=== PATIENT | female | born 1995 | race Caucasian/White ===

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

== ENCOUNTER 2017-04-21 17:03 | Emergency (ER) | END 2017-04-21 18:20 | disposition left against medical advice (07) | LOC: UCEAST 17:03 | DX: L98.9 Disorder of the skin and subcutaneous tissue, unspecified (principal); Z53.21 Procedure and treatment not carried out due to patient leaving prior to being seen by health care provider ==

== ENCOUNTER 2017-04-21 18:26 | Emergency (ER) | payer SELFPAY ==
[2017-04-21 18:51] VITALS: BP 116/47
--- NOTE | 2017-04-21 19:18 | UC ---
Skin Complaint HPI - HPI Summary HPI Summary: 22 y/o female presents to the urgent care c/o of rash around her medial thighs and suprapubic area since last Thursday. She states rash started in the medial thighs first and then spread at the suprapubic area and in her back and now one discrete papule in the LF cheek. It is painful and itchess. some of them as oozing pus. 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 She recently started taking Celexa for Depression about 2 weeks ago. Pt denies fever, SOB, HX of STDs, sick contacts, Chest pain, N/V/D, vaginal discharge. LMP: 04/02/2017 - History of Current Complaint Chief Complaint: UCSkin Time Seen by Provider: 04/21/17 18:53 Stated Complaint: SKIN COMPLAINT Hx Obtained From: Patient Hx Last Menstrual Period: 04/02/17 ?: No Onset/Duration: Sudden Onset, Lasting Days, Still Present Skin Exposure Onset/Duration: Days Ago Timing: Constant Onset Severity: Mild Current Severity: Moderate Pain Intensity: 3 Pain Scale Used: 0-10 Numeric Location: Discrete - in the medial thights, suprapubic area, one in the left cheek and in the back Aggravating: Wet Conditions, Humidity, Touch Alleviating: OTC Meds - triple antibiotic Associated Signs & Symptoms: Positive: Tenderness. Negative: Nausea, Vomiting, Fever - Allergy/Home Medications Allergies/Adverse Reactions: Allergies Allergy/AdvReac Type Severity Reaction Status Date / Time milk and dairy products Allergy Congestion Uncoded 04/21/17 18:51 trees nuts Allergy Swelling Uncoded 04/21/17 18:51 Of Face,Lips,& Throat Home Medications: Home Medications Citalopram TAB* [Celexa TAB*] 20 mg PO DAILY 04/21/17 [History Confirmed ] Review of Systems Skin: Rash - in the medial thights and suprapubic area Eyes: Negative ENT: Negative Respiratory: Negative Cardiovascular: Negative Gastrointestinal: Negative Genitourinary: Negative Motor: Negative Neurovascular: Negative Musculoskeletal: Negative Neurological: Negative Psychological: Negative All Other Systems Reviewed And Are Negative: Yes PMH/Surg Hx/FS Hx/Imm Hx Previously Healthy: Yes Respiratory History: Asthma Psychological History: Anxiety, Depression - Surgical History Surgical History: Yes Surgery Procedure, Year, and Place: T & A - Family History Known Family History: Positive: Hypertension, Diabetes, Other - mother with heel spurs Negative: Cardiac Disease - Social History Occupation: Employed Full-time Lives: With Family Alcohol Use: None Substance Use Type: None Smoking Status (MU): Never Smoked Tobacco Physical Exam Triage Information Reviewed: Yes Appearance: Well-Appearing, No Pain Distress, Well-Nourished, Obese Vital Signs: Initial Vital Signs Temp 99.3 F 04/21/17 18:47 Pulse 73 04/21/17 18:47 Resp 14 04/21/17 18:47 BP 116/47 04/21/17 18:47 Pulse Ox 99 04/21/17 18:47 Vital Signs Reviewed: Yes Eyes: Positive: Conjunctiva Clear - PERRLA, EOMI, fundi grossly normal ENT Exam: Normal ENT: Positive: Normal ENT inspection, Hearing grossly normal, Pharynx normal, TMs normal Dental Exam: Normal Neck exam: Normal Neck: Positive: Supple, Nontender, No Lymphadenopathy Respiratory Exam: Normal Respiratory: Positive: Chest non-tender, Lungs clear, Normal breath sounds, No respiratory distress Cardiovascular Exam: Normal Cardiovascular: Positive: RRR, No Murmur, Pulses Normal, Brisk Capillary Refill Abdominal Exam: Normal Abdomen Description: Positive: Nontender, No Organomegaly, Soft. Negative: CVA Tenderness (R), CVA Tenderness (L) Bowel Sounds: Positive: Present Musculoskeletal Exam: Normal Musculoskeletal: Positive: Strength Intact, ROM Intact Neurological Exam: Normal Psychological Exam: Normal Skin: Positive: rashes - B/L medial thights and suprapupic area with multiple erythematous maculopapular eruption with oozing light yellowish discharge, tender to palpation, mild swelling, signs of scoriation and some with crusting. Genital area is w/o lesions. similar eruption begining in the back and one postule in the left cheek, Course/Dx - Course Course Of Treatment: 22 y/o female presents to the urgent care c/o of rash around her medial thighs and suprapubic area since last Thursday. She states rash started in the medial thighs first and then spread at the suprapubic area and in her back and now one discrete papule in the LF cheek. It is painful and itchess. some of them as oozing pus. 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 She recently started taking Celexa for Depression about 2 weeks ago. Pt denies fever, SOB, HX of STDs, sick contacts, Chest pain, N/V/D, vaginal discharge. LMP : 04/02/2017. Hx obtained. PE abnormal findings:B/L medial thights and suprapupic area with multiple erythematous maculopapular eruption with oozing light yellowish discharge, tender to palpation, mild swelling, signs of scoriation and some with crusting. Genital area is w/o lesions. similar eruption. Case discussed with Dr Genao and agree to take wound culture, which was taking for suprapubic area and sent to lab. Pt Rx Bactrim x 10 days and Mupirocin topical ABx . Pt advised if fever, myalgia or neck pain develops to immediately go to the ER. Otherwise f/u with her PCP in 1 week for further management. Pt understood and agreed and left clinic ambulating - Differential Diagnoses - Skin Complaint Differential Diagnoses: Contact Dermatitis, Drug Rash, Impetigo, MRSA, Poison Reyna, Scabies, Urticaria - Diagnoses Provider Diagnoses: bacterial rash - Physician Notification/Consults Discussed Patient Care With: Rudi Magana - Dr Perez agreed w/ Pt care and tx Discharge - Discharge Plan Condition: Stable Disposition: HOME Prescriptions: Methylprednisolone [Medrol Dosepak 4 MG*] 4 mg PO .SEE MJ INSTRUCTION #1 tab Mupirocin 2% CREAM* [Bactroban 2% CREAM*] 1 applic TOPICAL TID #1 tube Sulfamethox/Trimethoprim DS* [Bactrim DS 800/160 TAB*] 1 tab PO BID #20 tab Patient Education Materials: Acute Rash (ED) Forms: *Work Release Referrals: Rahel Salinas MD [Primary Care Provider] - 1 Week Additional Instructions: Please take medications as instructed and finish the full course of treatment to avoid recurrent infection. If you develop fever, myalgias, neck pain please go immediately to the ER, Otherwise follow up with your PCP in 1 week to see if rash is resolving or further treatment. Wound cultures sent to lab, if anything abnormal, you will receive a call from us.
== END 2017-04-21 19:45 | disposition home or self-care (01) ==
LOC: UCCORT 18:26
DX: R21 Rash and other nonspecific skin eruption (principal); A49.9 Bacterial infection, unspecified
CPT/HCPCS: 87070; 87077; 87186; 87205; 99212; G0463

== ENCOUNTER 2017-08-03 20:25 | Emergency (ER) | payer OTHER ==
[2017-08-03 21:10] VITALS: BP 114/69
--- NOTE | 2017-08-03 21:49 | ED ---
Throat Pain/Nasal Congestion - HPI Summary HPI Summary: 22 yr old female with the complaint of left ear pain, for several months, and popping sound recently with pain. Located in the left ear. Pain is moderate. No other complaints. No change in hearing. She denies a prior history of OM. - History of Current Complaint Chief Complaint: UCEar Time Seen by Provider: 08/03/17 21:31 - Allergies/Home Medications Allergies/Adverse Reactions: Allergies Allergy/AdvReac Type Severity Reaction Status Date / Time milk and dairy products Allergy Congestion Uncoded 08/03/17 21:05 trees nuts Allergy Swelling Uncoded 08/03/17 21:05 Of Face,Lips,& Throat Home Medications: Home Medications Venlafaxine CAP (NF) [Effexor CAP (NF)] 75 mg PO 08/03/17 [History] PMH/Surg Hx/FS Hx/Imm Hx Respiratory History: Reports: Hx Asthma - Surgical History Surgery Procedure, Year, and Place: T & A Infectious Disease History: No Infectious Disease History: Denies: Hx Clostridium Difficile, Hx Hepatitis, Hx Human Immunodeficiency Virus (HIV), Hx of Known/Suspected MRSA, Hx Shingles, Hx Tuberculosis, Hx Known/ Suspected VRE, Hx Known/Suspected VRSA, History Other Infectious Disease, Traveled Outside the [place] in Last 30 Days - Family History Known Family History: Positive: Hypertension, Diabetes, Other - mother with heel spurs Negative: Cardiac Disease - Social History Alcohol Use: None Substance Use Type: Reports: None Smoking Status (MU): Never Smoked Tobacco Review of Systems Constitutional: Negative All Other Systems Reviewed And Are Negative: Yes Physical Exam Triage Information Reviewed: Yes Vital Signs On Initial Exam: Initial Vitals Temp Pulse Resp BP Pulse Ox 98.2 F 74 18 114/69 100 08/03/17 21:00 08/03/17 21:00 08/03/17 21:00 08/03/17 21:00 08/03/17 21:00 Vital Signs Reviewed: Yes Appearance: Positive: Well-Appearing, No Pain Distress Skin: Positive: Warm Head/Face: Positive: Normal Head/Face Inspection Eyes: Positive: EOMI ENT: Positive: Normal ENT inspection, TM dull - left with some scarring and redness appearance Neck: Positive: Nontender Respiratory/Lung Sounds: Positive: Clear to Auscultation, Breath Sounds Present Cardiovascular: Positive: RRR. Negative: Murmur Abdomen Description: Positive: Nontender Musculoskeletal: Positive: Strength/ROM Intact Neurological: Positive: Sensory/Motor Intact, Alert, Oriented to Person Place, Time, CN Intact II-III Psychiatric: Positive: Normal AVPU Assessment: Alert - Jackson Coma Scale Best Eye Response: 4 - Spontaneous Best Motor Response: 6 - Obeys Commands Best Verbal Response: 5 - Oriented Diagnostics - Vital Signs Vital Signs Temp Pulse Resp BP Pulse Ox 08/03/17 21:00 98.2 F 74 18 114/69 100 - Laboratory Lab Statement: Any lab studies that have been ordered have been reviewed, and results considered in the medical decision making process. EENT Course/Dx - Course Course Of Treatment: 22 yr old with scarring to left TM, redness and retraction , appears to be more chronic process. She is from [place] and her PMD is here. She will get ENT referral. - Diagnoses Provider Diagnoses: Otitis media Discharge - Discharge Plan Condition: Good Disposition: HOME Prescriptions: Amoxicillin PO (*) [Amoxicillin 500 MG CAP*] 500 mg PO TID #30 cap Patient Education Materials: Otitis Media (ED) Referrals: Rahel Salinas MD [Primary Care Provider] -
[2017-08-03] MEDS ORDERED: Amoxicillin PO (*) 500 MG CAP PO ONE (22:00)
== END 2017-08-03 22:13 | disposition home or self-care (01) ==
LOC: UCCORT 20:25
DX: H66.92 Otitis media, unspecified, left ear (principal); J45.909 Unspecified asthma, uncomplicated
CPT/HCPCS: 99212; A9270-GY; G0463

== ENCOUNTER 2017-09-08 19:14 | Emergency (ER) | payer OTHER ==
--- NOTE | 2017-09-08 21:55 | UC ---
Ear Complaint HPI - HPI Summary HPI Summary: 22 YEAR OLD FEMALE PRESENTS WITH COMPLAINS OF LEFT EAR PAIN. - History of Current Complaint Stated Complaint: RECHECK EARS Time Seen by Provider: 09/08/17 21:55 Hx Obtained From: Patient Hx Last Menstrual Period: 04/02/17 Onset/Duration: Sudden Onset Severity Initially: Moderate Severity Currently: Moderate Pain Scale Used: 0-10 Numeric - 5 - Allergies/Home Medications Allergies/Adverse Reactions: Allergies Allergy/AdvReac Type Severity Reaction Status Date / Time milk and dairy products Allergy Congestion Uncoded 09/08/17 21:59 trees nuts Allergy Swelling Uncoded 09/08/17 21:59 Of Face,Lips,& Throat Home Medications: Home Medications Acetaminophen [Acetaminophen Extra Stren] 1,000 mg PO Q6H PRN 09/08/17 [History Confirmed 09/08/17] PMH/Surg Hx/FS Hx/Imm Hx - Surgical History Surgical History: Yes Surgery Procedure, Year, and Place: T & A - Family History Known Family History: Positive: Hypertension, Diabetes, Other - mother with heel spurs Negative: Cardiac Disease - Social History Alcohol Use: None Substance Use Type: None Smoking Status (MU): Never Smoked Tobacco - Immunization History Most Recent Influenza Vaccination: [id number] Review of Systems Constitutional: Negative Skin: Negative Eyes: Negative ENT: Ear Ache Respiratory: Negative Cardiovascular: Negative Gastrointestinal: Negative Genitourinary: Negative Motor: Negative Neurovascular: Negative Musculoskeletal: Negative Neurological: Negative Psychological: Negative All Other Systems Reviewed And Are Negative: Yes Physical Exam Triage Information Reviewed: Yes Vital Signs Reviewed: Yes Eye Exam: Normal ENT: Positive: Other - LEFT EXTERNAL CANAL ERYTHEMA Dental Exam: Normal Neck exam: Normal Neck: Positive: 1 Respiratory Exam: Normal Cardiovascular Exam: Normal Abdominal Exam: Normal Musculoskeletal Exam: Normal Neurological Exam: Normal Psychological Exam: Normal Skin Exam: Normal Ear Complaint Course/Dx - Differential Dx/Diagnosis Provider Diagnoses: LEFT OTITIS EXTERNA Discharge - Discharge Plan Condition: Stable Disposition: HOME Prescriptions: Amoxicillin PO (*) [Amoxicillin 875 MG (*)] 875 mg PO BID #20 tab Methylprednisolone [Medrol Dosepak 4 MG*] 4 mg PO .SEE MJ INSTRUCTION #21 tab Neomyc/Polym/HC 1% OTIC SUSP* [Cortisporin Otic Susp 1%*] 4 drop LEFT EAR TID # 1 btl Patient Education Materials: Otitis Externa (ED) Referrals: Rahel Salinas MD [Primary Care Provider] - Dmitriy Parr MD [Medical Doctor] -
[2017-09-08 21:59] VITALS: BP 132/72
== END 2017-09-08 22:12 | disposition home or self-care (01) ==
LOC: UCCORT 19:14
DX: H60.92 Unspecified otitis externa, left ear (principal)
CPT/HCPCS: 99212; G0463

== ENCOUNTER 2017-11-01 15:11 | Emergency (ER) | payer OTHER ==
[2017-11-01 18:15] VITALS: BP 125/74
--- NOTE | 2017-11-01 18:44 | UC ---
Respiratory Complaint HPI - HPI Summary HPI Summary: C/O sinus pain, earache, cough with SOB and wheezing with fever. H/O pneumonia. - History of Current Complaint Chief Complaint: UCRespiratory Stated Complaint: SINUSES Time Seen by Provider: 11/01/17 18:33 Hx Obtained From: Patient Hx Last Menstrual Period: IUD ?: No Onset/Duration: Sudden Onset, Lasting Weeks - 1, Worse Since - onset Timing: Constant Severity Initially: Mild Severity Currently: Moderate Character: Cough: Nonproductive Aggravating Factors: Nothing Alleviating Factors: Bronchodilator Associated Signs And Symptoms: Positive: Dyspnea, Fever, Wheezing, URI, Nasal Congestion, Sinus Discomfort. Negative: Calf Pain, Calf Swelling Related History: Seasonal Allergies - Risk Factors Pulmonary Embolism Risk Factors: Negative - Allergies/Home Medications Allergies/Adverse Reactions: Allergies Allergy/AdvReac Type Severity Reaction Status Date / Time milk and dairy products Allergy Congestion Uncoded 11/01/17 18:09 trees nuts Allergy Swelling Uncoded 11/01/17 18:09 Of Face,Lips,& Throat PMH/Surg Hx/FS Hx/Imm Hx Respiratory History: Asthma - Surgical History Surgical History: Yes Surgery Procedure, Year, and Place: T & A - Family History Known Family History: Positive: Hypertension, Diabetes, Other - mother with heel spurs Negative: Cardiac Disease - Social History Occupation: Student Lives: Dormitory/Roommates Alcohol Use: None Substance Use Type: None Smoking Status (MU): Never Smoked Tobacco Have You Smoked in the Last Year: No - Immunization History Most Recent Influenza Vaccination: [id number] Review of Systems Constitutional: Fever ENT: Sore Throat, Ear Ache, Nasal Discharge, Sinus Congestion Respiratory: Shortness Of Breath, Cough Is Patient Immunocompromised?: No All Other Systems Reviewed And Are Negative: Yes Physical Exam Triage Information Reviewed: Yes Appearance: No Pain Distress, Well-Nourished, Ill-Appearing Vital Signs: Initial Vital Signs Temp 98.5 F 11/01/17 18:09 Pulse 85 11/01/17 18:09 Resp 16 11/01/17 18:09 BP 125/74 11/01/17 18:09 Pulse Ox 99 11/01/17 18:09 Vital Signs Reviewed: Yes Eyes: Positive: Conjunctiva Inflamed - OU ENT: Positive: Pharynx normal, TMs normal Neck exam: Normal Respiratory: Positive: Wheezing - Expiratory wheeze with forced expiration Cardiovascular Exam: Normal Musculoskeletal Exam: Normal Neurological Exam: Normal Psychological Exam: Normal Skin Exam: Normal UC Diagnostic Evaluation - Laboratory O2 Sat by Pulse Oximetry: 99 Respiratory Course/Dx - Differential Dx/Diagnosis Differential Diagnosis/HQI/PQRI: Asthma, Lower Resp Infection, Sinusitis Provider Diagnoses: Acute URI. Acute sinusitis. Acute bronchospasm Discharge - Discharge Plan Condition: Stable Disposition: HOME Prescriptions: Amoxicillin PO (*) [Amoxicillin 875 MG (*)] 875 mg PO BID #20 tab predniSONE TAB* [Deltasone TAB*] 20 mg PO DAILY #18 tab Patient Education Materials: Upper Respiratory Infection (ED), Sinusitis (ED), Bronchospasm (ED), Amoxicillin (By mouth), Prednisone (By mouth) Referrals: Rahel Salinas MD [Primary Care Provider] - Additional Instructions: NEILMED SINUS RINSE: CHECK OUT AT [employer] Saline nasal wash helps with mucous, allergies and congestion. It can be used up to twice a day or only as needed. Use lukewarm tap water. It does not have to be sterilized or distilled water. Do 1/3 on each side and snort out of both nostrils. Repeat the process with 1/6 of the bottle on each side with snorting in between to finish the solution in the bottle
[2017-11-01] MEDS ORDERED: Amoxicillin PO (*) 500 MG CAP PO ONE (18:46)
[2017-11-01] MEDS ORDERED: predniSONE TAB* 20 MG PO ONE (18:46)
== END 2017-11-01 18:56 | disposition home or self-care (01) ==
LOC: UCCORT 15:11
DX: J06.9 Acute upper respiratory infection, unspecified (principal); J01.90 Acute sinusitis, unspecified; J98.01 Acute bronchospasm
CPT/HCPCS: 99212; A9270-GY; G0463; J7512

== ENCOUNTER 2018-06-06 17:22 | Emergency (ER) | payer OTHER ==
--- NOTE | 2018-06-06 18:43 | UC ---
Lower Extremity/Ankle HPI - HPI Summary HPI Summary: Patient states she was hiking yesterday with her boyfriend when all of a sudden she rolled her ankle outwards. She states she has weak ankles and she did not notice stepping on a stone or an irregular surface. The patient states that at that time she did not feel any pain and continued walking. This morning she felt pain on the lateral aspect of her right ankle and also intermittent shooting pain from her heel that radiated up her leg. She states currently her pain level is 5 out of 10, her last dose of ibuprofen was 6 hours ago. She states ibuprofen helps little. States that she has an ankle brace at home but has not used it. - History of Current Complaint Stated Complaint: RIGHT ANKLE INJURY Time Seen by Provider: 06/06/18 18:36 Hx Obtained From: Patient Hx Last Menstrual Period: IUD ?: No Onset/Duration: Sudden Onset, Lasting Hours Severity Initially: Mild Severity Currently: Moderate Aggravating Factor(s): Ambulation Alleviating Factor(s): Rest, Elevation Able to Bear Weight: Yes - Risk Factors Gout Risk Factors: Negative DVT Risk Factors: Negative Septic Arthritis Risk Factor: Negative - Allergies/Home Medications Allergies/Adverse Reactions: Allergies Allergy/AdvReac Type Severity Reaction Status Date / Time milk and dairy products Allergy Congestion Uncoded 06/06/18 18:35 trees nuts Allergy Swelling Uncoded 06/06/18 18:35 Of Face,Lips,& Throat Home Medications: Home Medications ALPRAZolam TAB* [Xanax TAB*] 0.25 mg PO TID PRN 06/06/18 [History Confirmed ] Acetaminophen TAB* [Tylenol TAB*] 650 mg PO Q4H PRN 06/06/18 [History Confirmed 06/06/18] Ibuprofen TAB* [Advil TAB*] 600 mg PO Q6H PRN 06/06/18 [History Confirmed ] Levonorgestrel (Iud) [Mirena IUD] 20 mcg IU 06/06/18 [History] PMH/Surg Hx/FS Hx/Imm Hx Previously Healthy: Yes Psychological History: Anxiety - Surgical History Surgical History: Yes Surgery Procedure, Year, and Place: T & A - Family History Known Family History: Positive: Hypertension, Diabetes, Other - mother with heel spurs Negative: Cardiac Disease - Social History Alcohol Use: None Substance Use Type: None Smoking Status (MU): Never Smoked Tobacco Have You Smoked in the Last Year: No - Immunization History Most Recent Influenza Vaccination: [id number] Review of Systems Constitutional: Negative Skin: Negative Musculoskeletal: Arthralgia All Other Systems Reviewed And Are Negative: Yes Physical Exam Triage Information Reviewed: Yes Appearance: Well-Appearing, No Pain Distress, Well-Nourished Vital Signs Reviewed: Yes Eyes: Positive: Conjunctiva Clear ENT: Positive: Hearing grossly normal Respiratory: Positive: Chest non-tender Cardiovascular: Positive: Pulses Normal, Brisk Capillary Refill Abdomen Description: Positive: Nontender Musculoskeletal: Positive: Strength Intact, ROM Intact, No Edema, Other: - tender along palpation of anterior talofibular ligament and medial aspect of heel of right foot. [place] negative. Gait is normal Lower Extremity Course/Dx - Course Course Of Treatment: Patient has pain below her lateral malleolus compatible with ankle sprain. Rest, ice, compression, elevation and ibuprofen as needed. She'll pain compatible with plantar fasciitis. Stretching exercises and icing will be helpful to treat this condition. - Differential Dx/Diagnosis Provider Diagnoses: Right Ankle sprain. Plantar fasciitis Discharge - Sign-Out/Discharge Documenting (check all that apply): Patient Departure All imaging exams completed and their final reports reviewed: No Studies - Discharge Plan Condition: Stable Disposition: HOME Patient Education Materials: Ankle Sprain (ED), Plantar Fasciitis Exercises ( GEN) Referrals: Dania Russell MD [Primary Care Provider] - - Billing Disposition and Condition Condition: STABLE Disposition: Home
[2018-06-06 18:44] VITALS: BP 105/65
== END 2018-06-06 19:25 | disposition home or self-care (01) ==
LOC: UCCORT 17:22
DX: S93.401A Sprain of unspecified ligament of right ankle, initial encounter (principal); X50.9XXA Other and unspecified overexertion or strenuous movements or postures, initial encounter; Y93.01 Activity, walking, marching and hiking; Y92.828 Other wilderness area as the place of occurrence of the external cause; M72.2 Plantar fascial fibromatosis
CPT/HCPCS: 99211; G0463